=== PATIENT | female | born 1980 | race Caucasian/White ===

== ENCOUNTER → 2017-05-13 16:49 | Outpatient (CLI) | payer MEDICAID, SELFPAY ==
[2017-05-13 16:53] LABS: Mucous, Urine 0 SEEN /hpf (<or=2+); Red Blood Cells-Urine 0 SEEN /hpf (0-5)
[2017-05-13 17:54] LABS: Color, Urine Yellow (Yellow); Glucose, Dipstick Normal (Normal); Ketone-Dipstick Negative (Negative); Leukocyte Esterase-Dipstick 500 /ul (Negative); Nitrite-Dipstick Negative (Negative); Occult Blood-Urine Negative /ul (Negative); Protein-Dipstick Negative (Negative); Urine Bilirubin Dipstick Negative (Negative); Urine Clarity Clear (Clear); Urine Urobilinogen 1 mg/dl (Normal)
[2017-05-13 19:02] LABS: Squamous Epithelial Cells - UA 0-5 SEEN /hpf (5-10); Transitional Epithelial - Ur 0-5 SEEN /hpf (0-5); White Blood Cells 5-10 SEEN /hpf (0-5)
[2017-05-13 19:03] LABS: Bacteria 1+ /hpf (None Seen)
== END ==
PROVIDERS: Visit Provider Obstetrics & Gynecology
DX: N93.0 Postcoital and contact bleeding (principal); N30.30 Trigonitis without hematuria
CPT/HCPCS: 81001; 87086; 87088

== ENCOUNTER 2017-12-17 16:28 | Emergency (ER) | payer MEDICAID, SELFPAY ==
[2017-12-17 16:29] VITALS: BP 147/92; PULSE 82; RESP 16; TEMP 36.9; O2SAT 99; BMI 27.6
--- NOTE | 2017-12-17 17:38 | ED.RN ---
pt calls out. states.. i am not doing well. i am ot breathing. pulse ox applied. heart rate 90 o2 sat 100. attempted to reassure pt
--- NOTE | 2017-12-17 18:03 | ED.DCSUM_ITS ---
- ER Visit Summary Date of Service: 12/17/17 Chief Complaint: Jittery History of Present Illness: The patient is a 37 F patient presents with nausea anxiety and feeling jittery after taking prednisone for contact dermatitis. She is on Effexor and trazodone and she has a history of bipolar. She has no symptoms of psychosis. Physical Examination: She appears slightly anxious. Moist mucous membranes, no obvious facial deformity No C-spine tenderness supple neck. Regular rate and rhythm without any obvious murmurs Clear lungs bilaterally speaking in full sentences without any obvious respiratory distress Abdomen soft and nontender no guarding or rebound Moves all extremities without any difficulty or pain. Skin does not show any obvious rashes or lesions, no trauma. Alert oriented ?3 with no gross focal deficit Emergency Department Course and Treatment: Patient has a prednisone reaction, I told her to stop it as it could lead to psychosis, I will treat her symptomatically with Ativan and Vistaril. Discharge stable condition Impression: [Steroid side effect] This note was generated with [employer] dictation software. It may contain incorrect words, spelling, and punctuation that were not noted in review of the chart prior to signing ED Disposition - Plan for ED Patient: Disposition: Home or Assisted Living Chief Complaint: Allergic Reaction Instructions: Treating Anxiety Disorders with Medication Prescriptions: Ondansetron [Zofran Odt] 4 mg PO Q8H PRN PRN #10 tab PRN Reason: Nausea Hydroxyzine Pamoate [Vistaril] 50 mg PO 4X/DAY PRN PRN #20 cap PRN Reason: Anxiety Lorazepam [Ativan] 1 mg PO BID PRN 3 Days #6 tab PRN Reason: Anxiety Referrals: Jodie Haji NP-C [Primary Care Provider] -
[2017-12-17] MEDS: LORazepam 1 MG Tablet PO (18:13)
[2017-12-17] MEDS: hydrOXYzine PAM 25 MG Capsule 50 MG PO (18:13)
== END 2017-12-17 18:30 | disposition home or self-care (01) ==
LOC: ED 18:17
PROVIDERS: Emergency Provider Emergency Medicine; Family Provider Nurse Practitioner Family; PCP Nurse Practitioner Family
DX: R11.0 Nausea (principal); T38.0X5A Adverse effect of glucocorticoids and synthetic analogues, initial encounter; Y92.9 Unspecified place or not applicable; F31.9 Bipolar disorder, unspecified; F41.9 Anxiety disorder, unspecified; Z72.0 Tobacco use
CPT/HCPCS: 99283

== ENCOUNTER 2018-02-27 15:26 | Emergency (ER) | payer MEDICAID, SELFPAY ==
[2018-02-27 15:27] VITALS: BP 124/81; PULSE 85; RESP 16; TEMP 36.2; O2SAT 100; BMI 29.2
--- NOTE | 2018-02-27 15:29 | ED.RN ---
PT GIVEN AN ICE PACK TO TRY WHILE IN THE WAITING ROOM
--- NOTE | 2018-02-27 15:55 | ED.DCSUM_ITS ---
- ER Visit Summary Date of Service: 02/27/18 Chief Complaint: Right jaw and dental pain History of Present Illness: The patient is a 37 F history of depression endometriosis with prior he does report an cholecystectomy and hysterectomy. Complaint 2-day history of right jaw pain. Denies any trauma. No fever. No significant swelling. Physical Examination: No acute distress. H EENT exam right lower last molar has a cavity is tender to palpation. There is no gingival swelling or abscess. No trismus. No significant facial swelling. No cervical lymphadenopathy. TMs are normal bilaterally. Posterior pharynx moist and pink no erythema or exudate. Hypoxic. Neck nontender. Lungs clear to auscultation bilaterally. Heart regular rate and rhythm no murmur. Abdomen soft nontender. Normal bowel sounds no peritoneal signs. Extremities moves all 4. Neurovascular intact. Neurologic exam normal. Test Results: None Emergency Department Course and Treatment: Patient be treated for Emma. Naprosyn for pain. Pen-Vee K. Follow-up with a dentist. She will be given 2 [place] here but no narcotic prescription. Treatment Plan: Naprosyn for pain. Pen-Vee K for possible infection. See a dentist. Disposition: Discharge Impression: Acute dental pain secondary to right lower molar cavity This note was generated with [employer] dictation software. It may contain incorrect words, spelling, and punctuation that were not noted in review of the chart prior to signing ED Disposition - Plan for ED Patient: Disposition: Home or Assisted Living Chief Complaint: Dental Instructions: ED Cavity Dental Prescriptions: Naproxen [Naprosyn] 500 mg PO BID PRN PRN #20 tab PRN Reason: Pain Penicillin Vk [Pen-Vee K 250MG] 500 mg PO 4X/DAY #30 tab Additional Instructions: Follow-up with a dentist in the next several days. Naprosyn for pain and inflammation. Penicillin VK for any possible infection.
--- NOTE | 2018-02-27 16:00 | DCINST.ED_ITS ---
ED Disposition - Plan for ED Patient: Disposition: Home or Assisted Living Chief Complaint: Dental Instructions: ED Cavity Dental Prescriptions: Naproxen [Naprosyn] 500 mg PO BID PRN PRN #20 tab PRN Reason: Pain Penicillin Vk [Pen-Vee K 250MG] 500 mg PO 4X/DAY #30 tab Additional Instructions: Follow-up with a dentist in the next several days. Naprosyn for pain and inflammation. Penicillin VK for any possible infection.
[2018-02-27] MEDS: HYDROcodone Bitartrate/Apap 5/325 Tablet PO (16:11)
[2018-02-27 16:14] VITALS: PULSE 79; RESP 16
--- NOTE | 2018-02-27 16:14 | ED.RN ---
THIS NURSE REVIEWED D/C INSTRUCTIONS WITH PT. PT VERBALIZED UNDERSTANDING OF INSTRUCTIONS. PT DENIES FURTHER NEEDS OR QUESTIONS AT THIS TIME. PT AMBULATES FROM DEPARTMENT ON OWN WITHOUT ASSISTANCE FROM STAFF
== END 2018-02-27 16:15 | disposition home or self-care (01) ==
PROVIDERS: Emergency Provider Emergency Medicine; Family Provider Nurse Practitioner Family; PCP Nurse Practitioner Family
DX: K02.9 Dental caries, unspecified (principal); Z90.49 Acquired absence of other specified parts of digestive tract; F32.9 Major depressive disorder, single episode, unspecified; Z72.0 Tobacco use
CPT/HCPCS: 99283

== ENCOUNTER → 2019-03-02 13:33 | Outpatient (CLI) | payer MEDICAID, SELFPAY | PROVIDERS: Visit Provider Obstetrics & Gynecology | DX: N39.0 Urinary tract infection, site not specified (principal) | CPT/HCPCS: 87086 ==

== ENCOUNTER 2019-03-25 05:50 | Emergency (ER) | payer MEDICAID, SELFPAY ==
[2019-03-25 05:51] VITALS: BP 138/92; PULSE 82; RESP 23; TEMP 37; O2SAT 100; BMI 27.6
--- NOTE | 2019-03-25 06:20 | RAD_ITS ---
STUDY: X-RAY - LEFT SHOULDER REASON FOR EXAM: Female, 38 years old. c/o chest pain radiating to left shoulder since 4:00pm yesterday TECHNIQUE: 4 view(s) of the shoulder. COMPARISON: None. FINDINGS: Normal glenohumeral articulation. Normal acromioclavicular joint. Normal acromion. Normal humeral head and visualized proximal humerus. The soft tissue structures are unremarkable. Normal visualized pulmonary apex. RAD/Shoulder min 2 Views IMPRESSION: Normal x-ray examination of the shoulder. Electronically Signed: Edy Alegria, at 7:23 EST Tel , Service support ,
--- NOTE | 2019-03-25 06:21 | ED.DCSUM_ITS ---
History of Present Illness Chief Complaint: Upper Extremity Injury Narrative: Patient is a 38-year-old female who presents with left shoulder pain, arm pain, left upper chest pain. This is been present for the past 26 hours. She initially noted pain along left side of her neck and shoulder. She complains of pain in the upper left chest as well as pain radiating all the way down her left arm. This is sharp. It is worsened with palpation or movement or deep inspiration. No fevers cough congestion rhinorrhea sore throat vomiting diarrhea lower extremity swelling or pain, recent travel, recent surgery, history of DVT or pulmonary embolism. Past Medical History - Allergies and Home Meds Allergies/Adverse Reactions: Allergies Iodinated Contrast Media [CT] Allergy (Verified 03/25/19 05:59) Anaphylaxis latex Allergy (Verified 03/25/19 05:59) Swelling morphine Allergy (Verified 03/25/19 05:59) Anaphylaxis prednisone Allergy (Verified 03/25/19 05:59) Other diphenhydramine HCl [From Benadryl] Adverse Reaction (Verified 03/25/19 05:59) Other TACHYCARDIA Primary Care Physician: Gerri Martinez NP-C [Primary Care Provider] - Past Medical History: - - Depression Smoking Status: Current every day smoker Review of Systems All systems negative except as indicated General: Denies: Fever ENT: Denies: Rhinorrhea, Sore throat Cardiovascular: Reports: Chest pain Respiratory: Denies: Dyspnea, Cough Gastrointestinal: Reports: Nausea. Denies: Abdominal pain, Vomiting, Diarrhea Musculoskeletal: Reports: Neck pain, Extremity Pain Skin: Denies: Rash Neurological: Denies: Headache Hematologic: Denies: Easy bruising Allergy: Denies: Uticaria Physical Exam Vital Signs/Narrative: Vital Signs Temp Pulse Resp BP Pulse Ox 03/25/19 05:51 98.6 F 82 23 H 138/92 H 100 Inital Vital Signs reviewed: Yes General: Well nourished, Well developed Head: Normocephalic Eyes: EOMI ENT: Moist mucous membranes Neck: Supple Cardiovascular: Regular rate, Regular rhythm Respiratory: No distress, CTA bilaterally, Chest tenderness - Mild left upper chest wall tenderness, - - Equal breath sounds bilaterally. Negative for: Rales, Rhonchi, Wheezing Abdomen: Soft, Nontender, Nondistended Extremities: Nontender, - - Easily palpable left radial pulse, brisk capillary refill, normal sensation, patient does have some reproducible left shoulder tenderness and left paraspinal neck tenderness Skin: Normal color Neurological: Alert Diagnostic/Tx/Re-eval Impressions Shoulder X-Ray 03/25/19 06:20 IMPRESSION: Normal x-ray examination of the shoulder. Electronically Signed: Edy Alegria, at 7:23 EST Tel , Service support , Chest X-Ray 03/25/19 06:50 IMPRESSION: Scoliotic curvature to the spine. Left basilar atelectasis. No focal consolidation. Electronically Signed: Edy Alegria, at 7:21 EST Tel , Service support , 03/25/19 06:20 Shoulder min 2 Views [RAD] Stat 03/25/19 06:50 Chest PA and Lateral [RAD] Stat - Medical Decision Making Chest x-ray and shoulder x-ray unremarkable. EKG shows normal sinus rhythm at a rate of 78. Patient's pain does not appear to be due to acute serious or life- threatening pathology. Pulmonary embolism was considered, patient is PERC rule negative. She is neurovascularly intact. She has no evidence of limb ischemia she has easily palpable pulse brisk capillary refill normal motor function and sensation. I do believe this is elated to a musculoskeletal etiology, possibly cervical radiculopathy. She was given intramuscular Toradol here. She is resting comfortably on reevaluation. She was given a prescription for naproxen and advised to follow-up as an outpatient. She was discharged. ED Disposition - Plan for ED Patient: Disposition: Home or Assisted Living Diagnosis: Chest pain, Arm pain, left Instructions: CHEST PAIN, NonCardiac Referrals: Gerri Martinez NP-C [Primary Care Provider] -
[2019-03-25] MEDS: Ketorolac 60 MG/2 ML Vial IM (06:36)
[2019-03-25] MEDS: Ondansetron ODT 4 MG Tablet PO (06:37)
--- NOTE | 2019-03-25 06:39 | EKG12_ITS ---
Test Reason : CP Blood Pressure : / mmHG Vent. Rate : 078 BPM Atrial Rate : 078 BPM P-R Int : 124 ms QRS Dur : 086 ms QT Int : 374 ms P-R-T Axes : 060 063 057 degrees QTc Int : 426 ms Normal sinus rhythm Normal ECG Confirmed by MELLO ALLRED, VANESSA ([id number]), web editor ESTELA GERBER ([id number]) on 03/27/2019 9:29:14 AM Referred By: ATIYA Confirmed By:VANESSA SARKAR MD
[2019-03-25 06:47] VITALS: BP 112/75; PULSE 78; RESP 18; O2SAT 98
--- NOTE | 2019-03-25 06:50 | RAD_ITS ---
STUDY: X-RAY CHEST REASON FOR EXAM: Female, 38 years old. c/o chest pain radiating to left shoulder since 4:00pm yesterday TECHNIQUE: Frontal and lateral views of the chest. COMPARISON: None. FINDINGS: Left basilar atelectasis. No focal consolidation. There is no demonstrated pleural abnormality. Normal size heart. Normal mediastinum and nic. Normal visualized pulmonary arteries. Normal visualized aortic arch and descending thoracic aorta. Scoliotic curvature to the spine. Normal visualized ribs, clavicles, and shoulders. There is no demonstrated abnormality of the visualized soft tissue structures of the upper abdomen. RAD/Chest PA and Lateral IMPRESSION: Scoliotic curvature to the spine. Left basilar atelectasis. No focal consolidation. Electronically Signed: Edy Alegria, at 7:21 EST Tel , Service support ,
== END 2019-03-25 07:48 | disposition home or self-care (01) ==
PROVIDERS: Emergency Provider Emergency Medicine; Family Provider Nurse Practitioner Family; PCP Nurse Practitioner Family
DX: R07.89 Other chest pain (principal); M79.602 Pain in left arm; M25.512 Pain in left shoulder; R11.0 Nausea; J98.11 Atelectasis; F32.9 Major depressive disorder, single episode, unspecified; Z79.899 Other long term (current) drug therapy; F17.200 Nicotine dependence, unspecified, uncomplicated
CPT/HCPCS: 71046; 73030; 93005; 96372; 99283

== ENCOUNTER → 2019-05-15 | Outpatient (CLI) | payer MEDICAID, SELFPAY | END | disposition home or self-care (01) | LOC: LABSPEC 15:26 | PROVIDERS: PCP Nurse Practitioner Family; Visit Provider Obstetrics & Gynecology | DX: N39.0 Urinary tract infection, site not specified (principal) | CPT/HCPCS: 87086; 87088 ==

== ENCOUNTER 2019-11-11 23:36 | Emergency (ER) | payer MEDICAID, SELFPAY ==
[2019-11-11 23:37] VITALS: BP 125/60; PULSE 81; RESP 15; TEMP 36.4; O2SAT 100; BMI 32.0
--- NOTE | 2019-11-12 | ED.VISSUMM ---
- ER Visit Summary Date of Service: 11/12/19 Chief Complaint: Low back pain, nausea, and urinary frequency History of Present Illness: The patient is a 39 F who presents with low back pain, nausea, and urinary frequency over the past 3 days. Patient states the pain is worse over the left lower lumbar area and radiates around to her left lower quadrant. Patient states she has a history of kidney stones but this feels different. Patient describes her pain is cramping and dull. Patient states yesterday it was more aching and throbbing. Patient states the pain is over the left lower back and left flank area. Patient states pain is worse with standing and lifting at work. Physical Examination: Vital signs are stable. Patient is afebrile. Patient is in no acute distress. Oral mucosa is pink and moist. Neck is supple. Trachea is midline. There is no JVD or lymphadenopathy. Heart was regular rate and rhythm. Lungs are clear and equal bilaterally. Abdomen is soft. Bowel sounds are normal. There is some mild left lower quadrant tenderness. There is also some mild left CVA tenderness. There is no rebound or guarding noted. Extremities are intact. There is no calf tenderness or edema. Cranial nerves II through XII are intact. There are no focal motor or sensory deficits. Test Results: CBC and comprehensive metabolic profile were within normal limits. Urinalysis does not show any evidence of urinary tract infection. CT scan of the abdomen and pelvis was obtained. There is no acute intra-abdominal process. This was interpreted by the radiologist and reviewed by myself. Emergency Department Course and Treatment: Patient was given IV fluids, Toradol, and Zofran here. Patient was feeling better on reevaluation. Patient was advised of her findings. Patient was instructed to follow-up with her primary care physician in 5 to 7 days. Patient was given a note for work for tomorrow. Patient was instructed to return if worse in any way. Patient understood and was agreeable with the plan. All questions were answered. Disposition: Discharge home Impression: Abdominal pain This note was generated with [employer] dictation software. It may contain incorrect words, spelling, and punctuation that were not noted in review of the chart prior to signing ED Disposition - Plan for ED Patient: Disposition: Home or Assisted Living Diagnosis: Abdominal pain Instructions: ED Abdominal Pain Unkn Cause Fem Referrals: Lorson,Gerri, BODY DIE MAKER-C [Primary Care Provider] - 5-7 Days
[2019-11-12] MEDS: Ondansetron 4 MG/2 ML Vial IV (00:28)
[2019-11-12] MEDS: 0.9% Normal Saline 1,000 ML 1000 ML IV (00:28)
[2019-11-12] MEDS: Ketorolac 30 MG/ML Syringe IV (00:29)
[2019-11-12 00:41] LABS: Mucous, Urine 0 SEEN /hpf (<or=2+); Squamous Epithelial Cells - UA 0 SEEN /hpf (5-10); White Blood Cells 0 SEEN /hpf (0-5)
[2019-11-12 00:50] LABS: Absolute Lymphocyte Count 2.17 X10^3/uL (0.83-4.51); Absolute Neutrophil Count 4.7 X10^3/uL (2.0-7.7); Basophil# 0.05 X10^3/uL; Basophil% 0.7 % (0-1); Eosinophil# 0.11 X10^3/uL; Eosinophils% 1.5 % (0-5); Hematocrit 43.9 % (37-47); Hemoglobin 14.7 g/dL (12.0-15.0); Lymphocyte # 2.17 X10^3/ul (4.0); Lymphocyte % 28.9 % (19-41); Mean Corp Hgb Conc 33.5 g/dL (32-36); Mean Corpuscular Hgb 30.7 pg (27.0-32.0); Mean Corpuscular Volume 91.6 fL (81-99); Mean Platelet Vol. 9.1 fl (6.2-12.0); Monocyte# 0.47 X10^3/uL; Monocyte% 6.3 % (0-10); NRBC Flagged by Analyzer 0 % (0-5); Neutrophil % 62.3 % (47-70); Platelet Count 249 K/mm3 (150-450); RBC Distribution Width CV 12.3 % (11.6-14.6); RBC Distribution Width SD 41.2 fl (35.1-43.9); Red Blood Count 4.79 M/mm3 (4.2-5.4); White Blood Count 7.5 K/mm3 (4.4-11.0)
[2019-11-12 00:51] LABS: Color, Urine Yellow (Yellow); Glucose, Dipstick Normal (Normal); Ketone-Dipstick Negative (Negative); Leukocyte Esterase-Dipstick Negative /ul (Negative); Nitrite-Dipstick Negative (Negative); Occult Blood-Urine 10 /ul (Negative); Protein-Dipstick Negative (Negative); Urine Bilirubin Dipstick Negative (Negative); Urine Clarity Clear (Clear); Urine Urobilinogen Normal (Normal)
[2019-11-12 00:56] LABS: Amorphous Sediment 1+; Bacteria RARE /hpf (None Seen); Red Blood Cells-Urine 0-5 SEEN /hpf (0-5)
[2019-11-12 01:06] LABS: ALB/GLOB Ratio 1.1 RATIO (0.9-2.4); AST(SGOT) 10 U/L (15-37); Alanine Aminotransfer ALT/SGPT 13 U/L (13-56); Albumin, Serum 3.7 g/dL (3.2-5.0); Alkaline Phosphatase 69 U/L (45-117); Anion Gap 6 (5-15); BUN 20 mg/dL (7-18); BUN/Creat Ratio 23.4 RATIO (10-20); Calcium,Total 9.2 mg/dL (8.5-10.1); Chloride 107 mmol/L (98-107); Creatinine, Serum 0.85 mg/dL (0.55-1.02); EST Glomerular Filtration Rate 79 mL/min (>60); Est Glom Filt Rate - Afr Amer 96 mL/min (>60); Estimated Creatinine Clearance 71.67 ml/min; Globulin 3.5 g/dL (2.2-4.2); Glucose 80 mg/dL (74-106); Lipase 185 U/L (73-393); Potassium 3.6 mmol/L (3.5-5.1); Protein, Total 7.2 g/dL (6.4-8.2); Sodium Level 140 mmol/L (136-145)
[2019-11-12 01:32] VITALS: BP 90/56; PULSE 71; RESP 15; O2SAT 99
--- NOTE | 2019-11-12 23:59 | CT_ITS ---
STUDY: CT ABDOMEN AND PELVIS WITHOUT CONTRAST REASON FOR EXAM: Female, 39 years old. Low back pain with nausea and urinary frequency. TECHNIQUE: Transaxial images were obtained from the dome of the diaphragm to the symphysis pubis without oral contrast, and without intravenous contrast. Sagittal and coronal images were reconstructed. Individualized dose optimization techniques were used for this CT. COMPARISON: None. FINDINGS: Partially visualized lower chest: Lung bases unremarkable. Liver: No concerning lesions. Gallbladder and biliary tree: Gallbladder not visible, probably resected. No biliary ductal dilation. Pancreas: No pancreatic lesions or inflammation. Spleen: Normal size, no splenic lesions. Adrenal glands: No concerning masses. Kidneys and ureters: No hydronephrosis or renal stones. No concerning masses. No ureteral dilation. Bowel: Noninflamed appendix. No obstruction or inflammation of the bowel. Urinary bladder: No stones or wall thickening. Reproductive: Status post hysterectomy. Neither ovary identified. Normal vaginal cuff. Vascular: No abdominal aortic aneurysm. Retroperitoneal and peritoneal spaces: No ascites or free air. No retroperitoneal lesions. Osseous: No acute osseous abnormality. Abdominal and pelvic wall: No concerning findings. CT/Abdomen/Pelvis without Cont IMPRESSION: No acute or concerning findings. Electronically Signed: Valdo Lee, at 0:58 EDT Tel , Service support ,
== END 2019-11-12 01:33 | disposition home or self-care (01) ==
PROVIDERS: Emergency Provider Emergency Medicine; PCP Nurse Practitioner Family
DX: R10.32 Left lower quadrant pain (principal); E66.9 Obesity, unspecified; Z87.442 Personal history of urinary calculi; Z72.0 Tobacco use
CPT/HCPCS: 74176; 80053; 81001; 83690; 85025; 96361; 96374; 96375; 99283; J7030; A4216; J2405

== ENCOUNTER → 2020-07-23 | Outpatient (CLI) | payer MEDICAID, SELFPAY ==
[2020-07-25 12:42] LABS: Gonococcus By Nucleic Acid AMP Negative (Negative)
[2020-07-25 12:45] LABS: Chlamydia By Nucleic Acid AMP Positive (Negative)
== END | disposition home or self-care (01) ==
PROVIDERS: PCP Nurse Practitioner Family; Visit Provider Obstetrics & Gynecology
DX: R30.0 Dysuria (principal); Z11.3 Encounter for screening for infections with a predominantly sexual mode of transmission
CPT/HCPCS: 87086; 87088; 87491; 87591

== ENCOUNTER → 2020-08-12 | Outpatient (CLI) | payer MEDICAID, SELFPAY ==
[2020-08-14 20:08] LABS: Chlamydia By Nucleic Acid AMP Negative (Negative)
[2020-08-14 21:21] LABS: Gonococcus By Nucleic Acid AMP Negative (Negative)
== END | disposition home or self-care (01) ==
LOC: LABSPEC 16:33
PROVIDERS: PCP Nurse Practitioner Family; Visit Provider Obstetrics & Gynecology
DX: Z11.3 Encounter for screening for infections with a predominantly sexual mode of transmission (principal)
CPT/HCPCS: 87491; 87591

== ENCOUNTER 2020-12-29 23:34 | Emergency (ER) | payer MEDICAID, SELFPAY ==
[2020-12-29 23:35] VITALS: BP 139/102; PULSE 95; RESP 18; TEMP 36.7; O2SAT 100; BMI 36.3
--- NOTE | 2020-12-30 00:38 | EX.ED.DYSGE1 ---
HPI History of Present Illness Chief Complaint: Shortness of Breath Detail of Chief Complaint: Shortness of breath, loss of taste, diarrhea Informant: patient Onset/Context/Timing Onset: Today (Loss follow-up patient), Days (Diarrhea past 2 days) and Weeks (Initial viral infection started 3 weeks ago) Context: Sudden Onset Timing: Continuous Current Severity: Moderate Maximum Severity: Moderate Worsened by: Nothing Relieved by: Nothing Associated Symptoms Associated Symptoms: Per HPI Narrative Narrative: Patient is a 40-year-old woman who is a smoker. She has a cough which is nonproductive. She presents because of diarrhea that started 2 days ago. She states 6-7 watery loose stools without blood or mucus. She reports thirst, dry mouth and orthostatic symptoms. She reports loss of taste today. She denies headache, visual, ocular auditory symptoms. She denies rash. Denies joint pain or swelling. Patient states she was ill 3 weeks ago with respiratory symptoms. Her children and the father of her children were positive for Covid. Her Covid test was negative. She does report nausea without vomiting. She denies dysuria, frequency, urgency or hematuria. She denies rash. She denies myalgias. Prior similar symptoms: No Recent Illness/Hospitalization: Yes PFSH PFSH Medical History Asthma Kidney stones Smoker Home Medications topiramate 200 mg PO DAILY 12/13/14 [History Last Taken Unknown] venlafaxine 150 mg PO DAILY 12/13/14 [History Last Taken 09/16/16 09:00] trazodone 200 mg PO QHS PRN PRN 01/24/17 [History Last Taken Unknown] bupropion HCl 150 mg PO DAILY 03/25/19 [History Last Taken Unknown] naproxen 500 mg PO BID #20 tab 03/25/19 [Rx Last Taken Unknown] potassium chloride 20 meq PO BID #180 ml 12/30/20 [Rx Last Taken Unknown] Allergy/AdvReac Type Severity Reaction Status Date / Time Iodinated Contrast Media [CT] Allergy Anaphylaxis Verified 12/29/20 23:38 latex Allergy Swelling Verified 12/29/20 23:38 morphine Allergy Anaphylaxis Verified 12/29/20 23:38 prednisone Allergy Other Verified 12/29/20 23:38 diphenhydramine HCl AdvReac Other Verified 12/29/20 23:38 [From Frantz] Surgical History (Updated 12/30/20 @ 01:22 by Lucie Jacobs) History of cholecystectomy Social History (Updated 12/30/20 @ 00:[address] Patel Barnhart MD) household members: significant other and children Smoking Status: Current every day smoker tobacco type: cigarettes alcohol intake: current Alcohol type: other substance use type: marijuana ROS ROS ED Constitutional Constitutional ED: Reports weight loss and other Details: Patient reports 15 pound weight loss over the past 2 weeks ; Denies chills, fever(s), subjective or sweats Eyes Eyes: Denies blurry vision, change in vision or diplopia ENT ENT ED: Denies ear pain, rhinorrhea or sore throat Cardiovascular Cardiovascular: Denies chest pain, orthopnea, palpitations, paroxysmal nocturnal dyspnea or racing heartbeat Respiratory/Chest Respiratory/Chest: Reports cough, dyspnea and dyspnea on exertion; Denies orthopnea, paroxysmal nocturnal dyspnea or sputum Gastrointestinal Gastrointestinal: Reports abdominal pain, diarrhea and nausea; Denies constipation or vomiting Genitourinary Genitourinary ED: Denies dysuria, hematuria or urinary frequency Musculoskeletal Musculoskeletal: Denies arthralgias, back pain, myalgias or neck pain Integumentary Denies rash Neurologic Neurologic: Reports weakness Endocrine Endocrinology: Denies polydipsia, polyphagia or polyuria Allergic/Immunologic Allergic/Immunologic ED: Denies urticaria EXAM Physical Exam Const Vital Signs: 12/29/20 23:35 Temperature 98.1 F Temperature Source Temporal Pulse Rate 95 Respiratory Rate 18 Blood Pressure 139/102 H Blood Pressure Mean 114 Pulse Ox 100 Oxygen Delivery Method Room Air Positive well nourished, well developed and obese General Appearance ED: well developed Nutritional Appearance: obese HEENT HEENT Narrative: Head is atraumatic normocephalic. Ears normal. TMs normal. Posterior pharynx no erythema or exudate. Mucosa is dry. Eyes PERRL and EOMs intact bilaterally General Eye ED: Negative for pale conjunctiva or scleral icterus Neck no lymphadenopathy, supple and no JVD Chest Wall inspection of chest normal Resp normal respiratory effort and clear to auscultation bilaterally Cardio regular rate, regular rhythm, S1 normal heart sound, S2 normal heart sound and no murmurs GI normal to inspection, nondistended, normoactive bowel sounds and non-tender Palpation: soft Back/Spine no CVA tenderness Cervical Spine: Negative for cervical spine tenderness Thoracic Spine / Upper Back: Negative for thoracic spinal tenderness or paraspinal muscle tenderness Extremity normal to inspection General Extremety ED: Negative for edema or tenderness General Extremity: Negative for edema Neuro oriented x3, CN's II-XII intact bilaterally and no sensory deficits noted Sensorium / Orientation: alert Motor Exam: strength 5/5 throughout Psych mental status grossly normal Skin no rashes or lesions noted and no wounds MDM MDM MDM Narrative Medical decision making narrative: Suspect patient has Covid. Because she is had significant diarrhea basic metabolic panel was obtained to assess renal function and specifically potassium for hypocalcemia. She does report shortness of breath CBC was obtained to rule out anemia. Patient was medicated with Zofran for her nausea and Imodium for her diarrhea. She received a fluid bolus. Covid test was ordered. Patient is hypokalemic due to diarrhea secondary to COVID-19 infection. She will receive p.o. potassium and discharged with short course of potassium. Lab Data Attestation: I reviewed the patient's lab results. Lab results narrative: Patient is neutropenic due to Covid. Covid test was positive. Labs: Laboratory Results - last 24 hr 12/30/20 12/30/20 01:11 01:11 WBC 4.1 L RBC 5.52 H Hgb 17.0 H Hct 49.4 H MCV 89.5 MCH 30.8 MCHC 34.4 RDW Std Deviation 41.4 RDW Coeff of Konstantin 12.6 Plt Count 203 MPV 9.6 Immature Gran % (Auto) 0.500 Neut % (Auto) 52.2 Lymph % (Auto) 37.2 Beadle % (Auto) 9.2 Eos % (Auto) 0.2 Baso % (Auto) 0.7 Absolute Neuts (auto) 2.1 Absolute Lymphs (auto) 1.53 Nucleated RBC % 0 Sodium 141 Potassium 3.0 L Chloride 105 Carbon Dioxide 27.0 Anion Gap 9 BUN 10 Creatinine 0.80 Estim Creat Clear Calc 75.41 Est GFR (MDRD) Af Amer 103 Est GFR (MDRD) Non-Af 85 BUN/Creatinine Ratio 12.5 Glucose 85 Calcium 9.5 Rhythm Strip Rhythm Strip: Sinus Rhythm Rate: 92 Ectopy: None Discharge Plan Triage Chief Complaint: Shortness of Breath ED Provider: Patel Barnhart Dx/Rx/DC Orders Clinical Impression: Diarrhea due to COVID-19, Acute hypokalemia, Mild dehydration, Neutropenia due to infection Instructions: Coronavirus Disease 2019 (COVID-19): Caring for Yourself or Others Prescriptions: New potassium chloride 20 mEq/15 mL liquid 20 meq PO BID Qty: 180 RF: 0 No Action venlafaxine 150 MG capsule 150 mg PO DAILY RF: 0 topiramate 50 MG tablet 200 mg PO DAILY RF: 0 trazodone 50 MG tablet 200 mg PO QHS PRN PRN (Reason: Insomnia) RF: 0 bupropion HCl 150 MG tablet extended release 24 hr 150 mg PO DAILY RF: 0 naproxen 500 MG tablet 500 mg PO BID Qty: 20 RF: 0 Primary Care Provider: Gerri Martinez NP Referrals: Gerri Martinez NP, [employer]MENT OPERATOR-C [Primary Care Provider] - Activity Restrictions/Additional Instructions: 1. Take potassium as prescribed 2. Take Imodium for loose stools 3. You will need to contact your practitioner for potassium test in 5 days, January 03 Disposition Disposition: Home, Self Care
[2020-12-30] MEDS: Loperamide 2 MG Capsule 4 MG PO (00:53)
[2020-12-30] MEDS: Ondansetron 4 MG/2 ML Vial IV (00:53)
[2020-12-30 01:22] LABS: Absolute Lymphocyte Count 1.53 X10^3/uL (0.83-4.51); Absolute Neutrophil Count 2.1 X10^3/uL (2.0-7.7); Basophil# 0.03 X10^3/uL; Basophil% 0.7 % (0-1); Eosinophil# 0.01 X10^3/uL; Eosinophils% 0.2 % (0-5); Hematocrit 49.4 % (37-47); Lymphocyte # 1.53 X10^3/ul (0.83-4.51); Lymphocyte % 37.2 % (19-41); Mean Corp Hgb Conc 34.4 g/dL (32-36); Mean Corpuscular Hgb 30.8 pg (27.0-32.0); Mean Corpuscular Volume 89.5 fL (81-99); Mean Platelet Vol. 9.6 fl (6.2-12.0); Monocyte# 0.38 X10^3/uL; Monocyte% 9.2 % (0-10); NRBC Flagged by Analyzer 0 % (0-5); Neutrophil # 2.14 X10^3/uL (2.7-7.7); Neutrophil % 52.2 % (47-70); Platelet Count 203 K/mm3 (150-450); RBC Distribution Width CV 12.6 % (11.6-14.6); RBC Distribution Width SD 41.4 fl (35.1-43.9); Red Blood Count 5.52 M/mm3 (4.2-5.4); White Blood Count 4.1 K/mm3 (4.4-11.0)
[2020-12-30 01:51] LABS: Anion Gap 9 (5-15); BUN 10 mg/dL (7-18); BUN/Creat Ratio 12.5 RATIO (10-20); Calcium,Total 9.5 mg/dL (8.5-10.1); Chloride 105 mmol/L (98-107); EST Glomerular Filtration Rate 85 mL/min (>60); Est Glom Filt Rate - Afr Amer 103 mL/min (>60); Estimated Creatinine Clearance 75.41 ml/min; Glucose 85 mg/dL (74-106); Sodium Level 141 mmol/L (136-145)
[2020-12-30] MEDS: Potassium Chloride Oral Soln 20 MEQ/15 ML UDC 40 MEQ PO ×3 (02:35→02:40)
[2020-12-30 02:39] VITALS: BP 143/89; PULSE 89; RESP 16; O2SAT 98
== END 2020-12-30 02:42 | disposition home or self-care (01) ==
PROVIDERS: Emergency Provider Emergency Medicine; PCP Nurse Practitioner Family
DX: U07.1 COVID-19 (principal); R19.7 Diarrhea, unspecified; E87.6 Hypokalemia; E86.0 Dehydration; D70.3 Neutropenia due to infection; F17.210 Nicotine dependence, cigarettes, uncomplicated; E66.9 Obesity, unspecified; Z87.442 Personal history of urinary calculi
CPT/HCPCS: 80048; 85025; 87426; 96374; 99281; J2405

== ENCOUNTER 2021-05-07 13:01 | Outpatient (CLI) | payer MEDICAID, SELFPAY | END 2021-05-07 23:59 | disposition home or self-care (01) | LOC: LABSPEC 13:04 | PROVIDERS: PCP Nurse Practitioner Family; Visit Provider Obstetrics & Gynecology | DX: N77.1 Vaginitis, vulvitis and vulvovaginitis in diseases classified elsewhere (principal) ==

== ENCOUNTER 2021-11-09 22:24 | Emergency (ER) | payer MEDICAID, SELFPAY ==
[2021-11-09 22:25] VITALS: BP 139/95; PULSE 86; RESP 18; TEMP 37.3; O2SAT 99; BMI 32.9
[2021-11-09 22:27] VITALS: BP 139/95; PULSE 86; RESP 18; TEMP 37.3; O2SAT 99
[2021-11-09 22:42] LABS: Mucous, Urine 0 SEEN /hpf (<or=2+)
--- NOTE | 2021-11-09 22:47 | ED.VIS.FEGU ---
HPI HPI - Female History of Present Illness Chief Complaint: Complaint Informant: patient Narrative Narrative: Patient presents with dysuria and now hematuria. Patient states that she started with some slight suprapubic discomfort yesterday. She then developed dysuria. The dysuria got worse today. She then also got hematuria with this. She has some pain up toward the flank mostly on the left but a little bit on the right. Most of her discomfort is suprapubic across her lower abdomen. Mild nausea but no vomiting. Subjective fevers. Primary complaint is the burning with urination that feels like razor blades. Patient has had kidney stones in the past but also has frequent UTIs that present like this. She has had a complete hysterectomy before. She had hysterectomy and unilateral oophorectomy. They then took the second ovary and a later operation. She is also had cholecystectomy PFSH PFSH Medical History Asthma Kidney stones Smoker Home Medications topiramate 50 mg tablet 200 mg PO DAILY 12/13/14 [History Last Taken Unknown] venlafaxine 150 mg capsule,extended release 24 hr 150 mg PO DAILY 12/13/14 [History Last Taken 09/16/16 09:00] trazodone 50 mg tablet 200 mg PO QHS PRN PRN Insomnia 01/24/17 [History Last Taken Unknown] bupropion HCl 150 mg 24 hr tablet, extended release 150 mg PO DAILY 03/25/19 [History Last Taken Unknown] naproxen 500 mg tablet 500 mg PO BID #20 tabs 03/25/19 [Rx Last Taken Unknown] potassium chloride 20 mEq/15 mL oral liquid 20 meq (15 mL) PO BID #180 mL 12/30/20 [Rx Last Taken Unknown] fluconazole 150 mg tablet (Diflucan) 150 mg PO DAILY #2 tabs 11/09/21 [Rx Last Taken Unknown] nitrofurantoin monohydrate/macrocrystals 100 mg capsule (Macrobid) 100 mg PO BID #20 caps 11/09/21 [Rx Last Taken Unknown] phenazopyridine 100 mg tablet (Pyridium) 100 mg PO TID 6 doses #6 tabs 11/09/21 [Rx Last Taken Unknown] Allergy/AdvReac Type Severity Reaction Status Date / Time Iodinated Contrast Media [CT] Allergy Anaphylaxis Verified 11/09/21 22:28 latex Allergy Swelling Verified 11/09/21 22:28 morphine Allergy Anaphylaxis Verified 11/09/21 22:28 prednisone Allergy Other Verified 11/09/21 22:28 diphenhydramine HCl AdvReac Other Verified 11/09/21 22:28 [From Benadryl] Surgical History History of cholecystectomy Social History household members: significant other and children Smoking Status: Current every day smoker tobacco type: cigarettes alcohol intake: current Alcohol type: other substance use type: marijuana ROS ROS ED Constitutional Constitutional ED: Reports subjective Eyes Eyes: Denies blurry vision ENT ENT ED: Denies rhinorrhea or sore throat Cardiovascular Cardiovascular: Denies chest pain Respiratory/Chest Respiratory/Chest: Denies cough or dyspnea Gastrointestinal Gastrointestinal: Reports abdominal pain and nausea; Denies constipation, diarrhea, melena or vomiting Genitourinary Genitourinary ED: Reports dysuria, hematuria and urinary frequency Musculoskeletal Musculoskeletal: Denies neck pain Integumentary Denies rash Neurologic Neurologic: Denies paresthesias or weakness Endocrine Endocrinology: Denies polydipsia or polyuria Hematologic/Lymphatic Hematologic/Lymphatic: Denies easy bleeding or easy bruising Allergic/Immunologic Allergic/Immunologic ED: Denies urticaria EXAM Physical Exam Const Vital Signs: 11/09/21 22:25 11/09/21 22:27 Temperature 99.1 F 99.1 F Temperature Source Oral Oral Pulse Rate 86 86 Respiratory Rate 18 18 Blood Pressure 139/95 H 139/95 H Blood Pressure Mean 109 109 Pulse Ox 99 99 Oxygen Delivery Method Room Air Room Air Positive well nourished and well developed General Appearance ED: well developed and NAD HEENT Reports moist mucous membranes Eyes General Eye ED: Negative for scleral icterus Resp normal respiratory effort and clear to auscultation bilaterally Cardio regular rate and regular rhythm GI normal to inspection, nondistended, normoactive bowel sounds GI Narrative: Patient has very minimal suprapubic tenderness. No rebound no guarding. No tenderness higher up. She has some mild CVA tenderness on both sides but is also tender with just paraspinal soft palpation. Back/Spine General Back: CVA tenderness Extremity normal to inspection Neuro Sensorium / Orientation: alert Psych mental status grossly normal Skin no rashes or lesions noted Skin Narrative: No vesicles. MDM MDM MDM Narrative Medical decision making narrative: Patient's urine shows 25-50 white cells 3+ bacteria 500 leukocyte Estrace and large number of red cells. This is consistent with UTI. Her onset of pain was suprapubic slow onset that then progressed. This is not typical of her sudden onset of pain with a kidney stone. We discussed options but agreed that at this time we will not do a CAT scan of her abdomen. We will treat this as UTI. If she is having more pain, fevers, vomiting or other concerns she should return. Although she is not allergic, she does not tolerate Bactrim well. She states normally she gets Macrobid and that works very well for her. Therefore in this case we will go with Macrobid. I have also written for Diflucan as she will have yeast issues often. Also Pyridium is written for. Lab Data Attestation: I reviewed the patient's lab results. Labs: Laboratory Results - last 24 hr 11/09/21 22:35 Urine Color Red Urine Clarity Cloudy Urine pH 7.0 Ur Specific [place] 1.005 Urine Protein 100 H Urine Glucose (UA) Normal Urine Ketones Negative Urine Occult Blood 250 H Urine Nitrite Negative Urine Bilirubin Negative Urine Urobilinogen Normal Ur Leukocyte Esterase 500 H Urine RBC > 100 SEEN Urine WBC 25-50 SEEN Ur Squamous Epith Cells 0-5 SEEN Urine Bacteria 3+ Urine Mucus 0 SEEN Urine Test Negative Discharge Plan Triage Chief Complaint: Complaint ED Provider: Yonathan Giles Dx/Rx/DC Orders Clinical Impression: UTI (urinary tract infection) Instructions: ED Cystitis Female Adult Prescriptions: New fluconazole [Diflucan] 150 mg tablet 150 mg PO DAILY Qty: 2 0RF Rx Instructions: Take on day 7 and day 10 of antibiotic treatment nitrofurantoin monohyd/m-cryst [Macrobid] 100 mg capsule 100 mg PO BID Qty: 20 0RF Rx Instructions: must administer with a meal/food phenazopyridine [Pyridium] 100 mg tablet 100 mg PO TID Qty: 6 0RF No Action venlafaxine 150 MG capsule 150 mg PO DAILY Label Comments: MOOD topiramate 50 MG tablet 200 mg PO DAILY Label Comments: BIPOLAR trazodone 50 MG tablet 200 mg PO QHS PRN PRN (Reason: Insomnia) Label Comments: CAN TAKE 50-150MG FOR INSOMNIA bupropion HCl 150 MG tablet extended release 24 hr 150 mg PO DAILY naproxen 500 MG tablet 500 mg PO BID Qty: 20 0RF potassium chloride 20 mEq/15 mL liquid 20 meq PO BID Qty: 180 0RF Primary Care Provider: Gerri Martinez NP Referrals: Gerri Martinez NP, ESTHETICIAN/SPA COORDINATOR-C [Primary Care Provider] - 3-5 Days if not improving Disposition Disposition: Home, Self Care
[2021-11-09 22:51] LABS: Color, Urine Red (Yellow); Glucose, Dipstick Normal (Normal); Ketone-Dipstick Negative (Negative); Leukocyte Esterase-Dipstick 500 /ul (Negative); Nitrite-Dipstick Negative (Negative); Occult Blood-Urine 250 /ul (Negative); Protein-Dipstick 100 mg/dl (Negative); Specific Gravity, Urine 1.005 (1.002-1.030); Urine Bilirubin Dipstick Negative (Negative); Urine Clarity Cloudy (Clear); Urine Urobilinogen Normal (Normal)
[2021-11-09] MEDS: oxyCODONE 5 MG Tablet PO (22:52)
[2021-11-09] MEDS: Phenazopyridine 95 MG Tablet 190 MG PO (22:52)
[2021-11-09] MEDS: Ondansetron ODT 4 MG Tablet PO (22:52)
[2021-11-09 23:10] LABS: Bacteria 3+ /hpf (None Seen); Red Blood Cells-Urine > 100 SEEN /hpf (0-5); Squamous Epithelial Cells - UA 0-5 SEEN /hpf (5-10); White Blood Cells 25-50 SEEN /hpf (0-5)
[2021-11-09 23:29] LABS: Internal QC Validated? YES +Cl - CLEAR BKGD
[2021-11-09 23:30] LABS: Pregnancy, Urine Negative Negative
[2021-11-09] MEDS: Nitrofurantoin Macrocrystals 100 MG Capsule PO (23:51)
[2021-11-09 23:53] VITALS: BP 134/58; PULSE 79; RESP 18
== END 2021-11-09 23:54 | disposition home or self-care (01) ==
PROVIDERS: Emergency Provider Emergency Medicine; PCP Nurse Practitioner Family; Visit Provider Emergency Medicine
DX: N39.0 Urinary tract infection, site not specified (principal); F17.210 Nicotine dependence, cigarettes, uncomplicated; J45.909 Unspecified asthma, uncomplicated; Z90.721 Acquired absence of ovaries, unilateral; Z87.442 Personal history of urinary calculi
CPT/HCPCS: 81001; 81025; 99283

== ENCOUNTER 2022-01-20 16:23 | Emergency (ER) | payer MEDICAID, SELFPAY ==
[2022-01-20 16:24] VITALS: BP 132/99; PULSE 76; RESP 18; TEMP 37; O2SAT 97; BMI 37.4
== END 2022-01-20 17:10 | disposition left against medical advice (07) ==
LOC: ED 17:11
PROVIDERS: PCP Nurse Practitioner Family
DX: Z53.21 Procedure and treatment not carried out due to patient leaving prior to being seen by health care provider (principal)

== ENCOUNTER 2022-05-23 23:02 | Emergency (ER) | payer MEDICAID, SELFPAY ==
--- NOTE | 2022-05-23 00:10 | RAD_ITS ---
INDICATION: cough EXAMINATION/TECHNIQUE: X-RAY - XR Chest 2 Views COMPARISON: 03/25/2019. FINDINGS: LINES/DEVICES: None. LUNGS: No consolidation. No pneumothorax. MEDIASTINUM: Unremarkable. CARDIAC SILHOUETTE: Not enlarged. BONES AND SOFT TISSUES: No acute abnormalities. RAD/Chest PA and Lateral IMPRESSION: No evidence of active intrathoracic disease. Electronically Signed: Enedina Wilson MD at 0:34 EST ,
[2022-05-23 23:03] VITALS: O2SAT 100
[2022-05-23 23:04] VITALS: BP 132/97; PULSE 79; RESP 18; TEMP 36.2; O2SAT 100; BMI 37.9
--- NOTE | 2022-05-23 23:35 | EDS_ITS ---
HPI History of Present Illness Chief Complaint: Shortness of Breath Informant: patient Narrative Narrative: Pain patient has about 2 to 3 days of symptoms. She started with some nasal congestion, headache she has developed muscle aches earaches slight headache na usea soft bowel movements. The nasal congestion worsened today but no facial pain. Highest temperature has been 99.9. 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 She tested herself it sounds like on Tuesday when her symptoms first started. It was negative on a home test at that time. Patient states that sometimes she feels her breathing is tight. She denied history of asthma although it is on her chart. But she does admit that when she gets sick she will oftentimes use an inhaler. She is not sure if she has heard wheezing. She is still smoking and was counseled to quit. PFSH PFSH Medical History Asthma Kidney stones Smoker Home Medications topiramate 50 mg tablet 200 mg PO DAILY 12/13/14 [History Last Taken Unknown] venlafaxine 150 mg capsule,extended release 24 hr 150 mg PO DAILY 12/13/14 [History Last Taken 09/16/16 09:00] trazodone 50 mg tablet 200 mg PO QHS PRN PRN Insomnia 01/24/17 [History Last Taken Unknown] bupropion HCl 150 mg 24 hr tablet, extended release 150 mg PO DAILY 03/25/19 [History Last Taken Unknown] naproxen 500 mg tablet 500 mg PO BID #20 tabs 03/25/19 [Rx Last Taken Unknown] potassium chloride 20 mEq/15 mL oral liquid 20 meq (15 mL) PO BID #180 mL [Rx Last Taken Unknown] fluconazole 150 mg tablet (Diflucan) 150 mg PO DAILY #2 tabs 11/09/21 [Rx Last Taken Unknown] nitrofurantoin monohydrate/macrocrystals 100 mg capsule (Macrobid) 100 mg PO BID #20 caps 11/09/21 [Rx Last Taken Unknown] phenazopyridine 100 mg tablet (Pyridium) 100 mg PO TID 6 doses #6 tabs 11/09/21 [Rx Last Taken Unknown] albuterol sulfate 90 mcg/actuation aerosol inhaler (Ventolin HFA) 2 puff inhalation Q4H PRN PRN Wheezing ##1 05/24/22 [Rx Last Taken Unknown] ondansetron 4 mg disintegrating tablet 4 mg PO Q8H PRN PRN Nausea #10 tabs 05/24/22 [Rx Last Taken Unknown] Allergy/AdvReac Type Severity Reaction Status Date / Time Iodinated Contrast Media [CT] Allergy Anaphylaxis Verified 05/23/22 23:04 latex Allergy Swelling Verified 05/23/22 23:04 morphine Allergy Anaphylaxis Verified 05/23/22 23:04 prednisone Allergy Other Verified 05/23/22 23:04 diphenhydramine HCl AdvReac Other Verified 05/23/22 23:04 [From Benadryl] Surgical History History of cholecystectomy Social History household members: significant other and children Smoking Status: Current every day smoker tobacco type: cigarettes alcohol intake: current Alcohol type: other substance use type: marijuana ROS ROS ED Constitutional Constitutional ED: Reports subjective and other Details: Highest temperature me asured was 99.9. Eyes Eyes: Denies change in vision ENT ENT ED: Reports ear pain, rhinorrhea and other Details: Nasal congestion ; Denies sore throat Cardiovascular Cardiovascular: Denies chest pain Respiratory/Chest Respiratory/Chest: Reports cough and dyspnea; Denies sputum Gastrointestinal Gastrointestinal: Reports diarrhea and nausea; Denies abdominal pain or vomiting Genitourinary Genitourinary ED: Denies dysuria or hematuria Musculoskeletal Musculoskeletal: Reports myalgias Integumentary Denies rash Neurologic Neurologic: Reports headache(s); Denies paresthesias or weakness Psychiatric Psychiatric: Reports anxiety Endocrine Endocrinology: Denies polydipsia or polyuria Hematologic/Lymphatic Hematologic/Lymphatic: Denies easy bleeding or easy bruising Allergic/Immunologic Allergic/Immunologic ED: Denies urticaria EXAM Physical Exam Narrative Exam Narrative: Patient awake alert no acute distress sitting in bed. HEENT shows moist mucous membranes with normal pharynx. Mild nasal congestion and clear rhinorrhea but no facial tenderness. Tympanic membranes are clear bilaterally. No temporal artery tenderness. Neck shows no JVD or lymphadenopathy. No stridor. Lungs are clear bilaterally. When the patient coughed, she did have wheezing but not with normal breathing. Heart is regular with a rate of about 70. I hear no murmur gallop or rub. Distal pulses are normal. Abdomen is soft with normal bowel sounds and completely nontender shows no CVA or suprapubic tenderness Extremities are not thin but there is no edema or asymmetry or tenderness. Skin shows no pallor or rashes. Const Vital Signs: 05/23/22 23:04 05/23/22 23:03 05/23/22 23:45 Temperature 97.2 F L Temperature Source Temporal Pulse Rate 79 82 Respiratory Rate 18 18 Respiratory Effort Normal Non-Labored Respiratory Depth Normal Respiratory Pattern Normal Normal Blood Pressure 132/97 H Blood Pressure Mean 108 Pulse Ox 100 Oxygen Delivery Method Room Air Room Air MDM MDM MDM Narrative Medical decision making narrative: My independent interpretation of her 2 view chest x-ray shows no infiltrative process. No cardiomegaly. No pneumothorax. Final reading by radiology as no evidence of active intrathoracic disease. Patient's COVID and influenza are negative. Patient still likely has a viral illness. She has symptoms consistent with that. We will write her for some Zofran as she has had some mild nausea. I will write for albuterol inhaler which she has used occasionally when she is sick. We discussed reasons to return. She requested time off work. She only works Tuesday and Tuesday so we will have her return which will give her almost a full week off to recover. Lab Data Attestation: I reviewed the patient's lab results. Radiography Diagnostic Testing: Clinical Impression(s) from Imaging Studies Chest X-Ray 05/23/22 00:10 IMPRESSION: No evidence of active intrathoracic disease. Electronically Signed: Enedina Wilson MD at 0:34 EST , Discharge Plan Triage Chief Complaint: Shortness of Breath ED Provider: Yonathan Giles Dx/Rx/DC Orders Clinical Impression: Viral URI with cough Instructions: ED URI, Viral, No Abx (Adult) Prescriptions: New albuterol sulfate [Ventolin HFA] 90 mcg/actuation HFA aerosol inhaler 2 puff inhalation Q4H PRN PRN (Reason: Wheezing) Qty: 1 0RF ondansetron [ondansetron] 4 mg tablet,disintegrating 4 mg PO Q8H PRN PRN (Reason: Nausea) Qty: 10 0RF No Action venlafaxine 150 MG capsule 150 mg PO DAILY Label Comments: MOOD topiramate 50 MG tablet 200 mg PO DAILY Label Comments: BIPOLAR trazodone 50 MG tablet 200 mg PO QHS PRN PRN (Reason: Insomnia) Label Comments: CAN TAKE 50-150MG FOR INSOMNIA bupropion HCl 150 MG tablet extended release 24 hr 150 mg PO DAILY naproxen 500 MG tablet 500 mg PO BID Qty: 20 0RF potassium chloride 20 mEq/15 mL liquid 20 meq PO BID Qty: 180 0RF fluconazole [Diflucan] 150 mg tablet 150 mg PO DAILY Qty: 2 0RF Rx Instructions: Take on day 7 and day 10 of antibiotic treatment nitrofurantoin monohyd/m-cryst [Macrobid] 100 mg capsule 100 mg PO BID Qty: 20 0RF Rx Instructions: must administer with a meal/food phenazopyridine [Pyridium] 100 mg tablet 100 mg PO TID Qty: 6 0RF Stand Alone Forms: Work Status Form Primary Care Provider: Gerri Martinez NP Referrals: Gerri Martinez NP, MANAGER OF HOUSEKEEPING-C [Primary Care Provider] - 3-5 Days if not improving Disposition Disposition: Home, Self Care
[2022-05-23] MEDS: Ipratropium/Albuterol Sulfate 3 ML AMPUL.NEB INHALATION (23:44)
[2022-05-23 23:45] VITALS: PULSE 82; RESP 18
[2022-05-24 00:58] VITALS: PULSE 88; RESP 16; O2SAT 99
== END 2022-05-24 01:03 | disposition home or self-care (01) ==
PROVIDERS: Emergency Provider Emergency Medicine; PCP Nurse Practitioner Family; Visit Provider Emergency Medicine
DX: J06.9 Acute upper respiratory infection, unspecified (principal); R11.0 Nausea; F17.210 Nicotine dependence, cigarettes, uncomplicated; R51.9 Headache, unspecified; F41.9 Anxiety disorder, unspecified; Z20.822 Contact with and (suspected) exposure to COVID-19
CPT/HCPCS: 71046; 87428; 94640; 99282

== ENCOUNTER 2022-09-21 00:10 | Emergency (ER) | payer MEDICAID, SELFPAY ==
[2022-09-21 00:11] VITALS: BP 165/92; PULSE 72; RESP 16; TEMP 36.6; O2SAT 99; BMI 38.9
--- NOTE | 2022-09-21 00:25 | ED.VIS.DENTA ---
HPI History of Present Illness Chief Complaint: Dental Informant: patient Onset/Context/Timing Onset: Yesterday Context: Gradual Onset Current Severity: Moderate Maximum Severity: Severe Narrative Narrative: Patient presents secondary to left upper dental pain. Patient states she is had several teeth pulled there and believes she had a root canal done on 1 tooth. Yesterday she had left upper dental pain and some slight facial swelling. She has been using Orajel, Tylenol, and ibuprofen without improvement. PFSH PFSH Medical History Asthma Kidney stones Smoker Home Medications topiramate 50 mg tablet 200 mg PO DAILY 12/13/14 [History Last Taken Unknown] venlafaxine 150 mg capsule,extended release 24 hr 150 mg PO DAILY 12/13/14 [History Last Taken 09/16/16 09:00] trazodone 50 mg tablet 200 mg PO QHS PRN PRN Insomnia 01/24/17 [History Last Taken Unknown] bupropion HCl 150 mg 24 hr tablet, extended release 150 mg PO DAILY 03/25/19 [History Last Taken Unknown] naproxen 500 mg tablet 500 mg PO BID #20 tabs 03/25/19 [Rx Last Taken Unknown] potassium chloride 20 mEq/15 mL oral liquid 20 meq (15 mL) PO BID #180 mL 12/30/20 [Rx Last Taken Unknown] fluconazole 150 mg tablet (Diflucan) 150 mg PO DAILY #2 tabs 11/09/21 [Rx Last Taken Unknown] nitrofurantoin monohydrate/macrocrystals 100 mg capsule (Macrobid) 100 mg PO BID #20 caps 11/09/21 [Rx Last Taken Unknown] phenazopyridine 100 mg tablet (Pyridium) 100 mg PO TID 6 doses #6 tabs 11/09/21 [Rx Last Taken Unknown] albuterol sulfate 90 mcg/actuation aerosol inhaler (Ventolin HFA) 2 puff inhalation Q4H PRN PRN Wheezing ##1 05/24/22 [Rx Last Taken Unknown] ondansetron 4 mg disintegrating tablet 4 mg PO Q8H PRN PRN Nausea #10 tabs 05/24/22 [Rx Last Taken Unknown] clindamycin HCl 150 mg capsule 300 mg PO 4X/DAY #80 CAPSULES 09/21/22 [Rx Last Taken Unknown] fluconazole 150 mg tablet (Diflucan) 150 mg PO DAILY #1 TAB 09/21/22 [Rx Last Taken Unknown] hydrocodone-acetaminophen 5-325mg 5mg-325mg 1 tab PO Q6H PRN PRN Pain 3 days #10 TABLETS 09/21/22 [Rx Last Taken Unknown] ondansetron 4 mg disintegrating tablet 4 mg PO Q8H PRN PRN Nausea #10 tabs 09/21/22 [Rx Last Taken Unknown] Allergy/AdvReac Type Severity Reaction Status Date / Time Iodinated Contrast Media [CT] Allergy Anaphylaxis Verified 09/21/22 00:12 latex Allergy Swelling Verified 09/21/22 00:12 morphine Allergy Anaphylaxis Verified 09/21/22 00:12 prednisone Allergy Other Verified 09/21/22 00:12 diphenhydramine HCl AdvReac Other Verified 09/21/22 00:12 [From Benadryl] Surgical History History of cholecystectomy Social History household members: significant other and children Smoking Status: Current every day smoker tobacco type: cigarettes alcohol intake: current Alcohol type: other substance use type: marijuana ROS ROS ED Constitutional Constitutional ED: Denies chills or fever(s) Eyes Eyes: Denies change in vision or discharge from eye(s) ENT ENT ED: Reports other Details: Left facial swelling and oral pain. ; Denies discharge from eye(s), rhinorrhea or sore throat Cardiovascular Cardiovascular: Denies chest pain Respiratory/Chest Respiratory/Chest: Denies cough or dyspnea Gastrointestinal Gastrointestinal: Denies abdominal pain, nausea or vomiting Genitourinary Genitourinary ED: Denies dysuria Musculoskeletal Musculoskeletal: Denies back pain or extremity pain Integumentary Denies Abrasions or rash Neurologic Neurologic: Denies headache(s) or weakness Allergic/Immunologic Allergic/Immunologic ED: Denies lip swelling or urticaria EXAM Physical Exam Const Vital Signs: 09/21/22 00:11 Temperature 97.8 F Temperature Source Temporal Pulse Rate 72 Respiratory Rate 16 Blood Pressure 165/92 H Blood Pressure Mean 116 Pulse Ox 99 Oxygen Delivery Method Room Air Positive well nourished and well developed General Appearance ED: well developed HEENT HEENT Narrative: No obvious facial edema or erythema at this time. Intraoral examination reveals multiple molars on the left maxillary surface that have been previously pulled. Gums are slightly edematous. Posterior pharynx examination is normal. No trismus. No cervical lymphadenopathy. Left TM is clear. Eyes PERRL and EOMs intact bilaterally Neck no lymphadenopathy Chest Wall inspection of chest normal and palpation of chest normal Resp normal respiratory effort and clear to auscultation bilaterally Cardio regular rate and regular rhythm GI normal to inspection, nondistended, normoactive bowel sounds Extremity normal to inspection Neuro oriented x3 and moves all extremities Psych mental status grossly normal Skin no rashes or lesions noted MDM MDM MDM Narrative Medical decision making narrative: I did do an [facility] report. Patient has not had narcotics in quite some time. She will be given a course of [place] and Zofran with it as she states that usually upsets her stomach. She is treated with clindamycin and a single dose of Diflucan written for the end of her antibiotic course. She is given a dental referral sheet. Return instructions given. Discharge Plan Triage Chief Complaint: Dental ED Provider: Kylah Martins Dx/Rx/DC Orders Clinical Impression: Odontalgia Instructions: ED Dental Pain Prescriptions: New hydrocodone-acetaminophen 5-325 mg tablet 1 tab PO Q6H PRN PRN (Reason: Pain) 3 Days Qty: 10 0RF ondansetron 4 mg tablet,disintegrating 4 mg PO Q8H PRN PRN (Reason: Nausea) Qty: 10 0RF fluconazole [Diflucan] 150 mg tablet 150 mg PO DAILY Qty: 1 0RF clindamycin HCl 150 mg capsule 300 mg PO 4X/DAY Qty: 80 0RF No Action venlafaxine 150 MG capsule 150 mg PO DAILY Label Comments: MOOD topiramate 50 MG tablet 200 mg PO DAILY Label Comments: BIPOLAR trazodone 50 MG tablet 200 mg PO QHS PRN PRN (Reason: Insomnia) Label Comments: CAN TAKE 50-150MG FOR INSOMNIA bupropion HCl 150 MG tablet extended release 24 hr 150 mg PO DAILY naproxen 500 MG tablet 500 mg PO BID Qty: 20 0RF potassium chloride 20 mEq/15 mL liquid 20 meq PO BID Qty: 180 0RF fluconazole [Diflucan] 150 mg tablet 150 mg PO DAILY Qty: 2 0RF Rx Instructions: Take on day 7 and day 10 of antibiotic treatment nitrofurantoin monohyd/m-cryst [Macrobid] 100 mg capsule 100 mg PO BID Qty: 20 0RF Rx Instructions: must administer with a meal/food phenazopyridine [Pyridium] 100 mg tablet 100 mg PO TID Qty: 6 0RF albuterol sulfate [Ventolin HFA] 90 mcg/actuation HFA aerosol inhaler 2 puff inhalation Q4H PRN PRN (Reason: Wheezing) Qty: 1 0RF ondansetron [ondansetron] 4 mg tablet,disintegrating 4 mg PO Q8H PRN PRN (Reason: Nausea) Qty: 10 0RF Primary Care Provider: Gerri Martinez NP Referrals: Gerri Martinez MICROSTRATEGY ARCHITECT DEVELOPER, MICROSTRATEGY ARCHITECT DEVELOPER-C [Primary Care Provider] - Activity Restrictions/Additional Instructions: Please continue to take ibuprofen regularly with the additional pain medicine I provided. A dental referral list was also given. Disposition Disposition: Home, Self Care Discharge Date/Time: 09/21/22 00:35
[2022-09-21] MEDS: Clindamycin HCl 150 MG Capsule 300 MG PO (00:32)
[2022-09-21] MEDS: Ondansetron ODT 4 MG Tablet PO (00:33)
[2022-09-21] MEDS: HYDROcodone Bitartrate/Apap 5/325 Tablet PO (00:33)
== END 2022-09-21 00:35 | disposition home or self-care (01) ==
PROVIDERS: Emergency Provider Emergency Medicine; PCP Nurse Practitioner Family; Visit Provider Emergency Medicine
DX: K08.89 Other specified disorders of teeth and supporting structures (principal); F17.210 Nicotine dependence, cigarettes, uncomplicated
CPT/HCPCS: 99283

== ENCOUNTER 2022-10-31 02:33 | Emergency (ER) | payer OTHER, MEDICAID, SELFPAY ==
[2022-10-31 02:34] VITALS: BP 162/129; PULSE 79; RESP 18; TEMP 36.6; O2SAT 98; BMI 37.3
[2022-10-31 02:40] VITALS: BP 162/129; PULSE 79; RESP 18; TEMP 36.6; O2SAT 98
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
--- NOTE | 2022-10-31 03:00 | EKG12_ITS ---
Test Reason : CP Blood Pressure : / mmHG Vent. Rate : 074 BPM Atrial Rate : 074 BPM P-R Int : 132 ms QRS Dur : 080 ms QT Int : 370 ms P-R-T Axes : 075 065 033 degrees QTc Int : 410 ms Normal sinus rhythm Nonspecific ST abnormality Abnormal ECG Confirmed by MELLO ALLRED, VANESSA ([id number]), production editor ESTELA GERBER ([id number]) on 11/01/2022 1:27:48 PM Referred By: Confirmed By:VANESSA SARKAR MD
[2022-10-31 03:03] LABS: Absolute Lymphocyte Count 2.56 X10^3/uL (0.83-4.51); Absolute Neutrophil Count 6.8 X10^3/uL (2.0-7.7); Basophil# 0.07 X10^3/uL; Basophil% 0.7 % (0-1); Eosinophil# 0.08 X10^3/uL; Eosinophils% 0.8 % (0-5); Hematocrit 47.8 % (37-47); Hemoglobin 15.8 g/dL (12.0-15.0); Lymphocyte # 2.56 X10^3/ul (0.83-4.51); Lymphocyte % 24.7 % (19-41); Mean Corp Hgb Conc 33.1 g/dL (32-36); Mean Corpuscular Hgb 30.6 pg (27.0-32.0); Mean Corpuscular Volume 92.6 fL (81-99); Mean Platelet Vol. 9.2 fl (6.2-12.0); Monocyte% 7.7 % (0-10); NRBC Flagged by Analyzer 0 % (0-5); Neutrophil # 6.81 X10^3/uL (2.7-7.7); Neutrophil % 65.7 % (47-70); Platelet Count 281 K/mm3 (150-450); RBC Distribution Width CV 13.1 % (11.6-14.6); RBC Distribution Width SD 44.5 fl (35.1-43.9); Red Blood Count 5.16 M/mm3 (4.2-5.4); White Blood Count 10.4 K/mm3 (4.4-11.0)
--- NOTE | 2022-10-31 03:08 | RAD_ITS ---
INDICATION: CP EXAMINATION/TECHNIQUE: X-RAY - XR Chest 1 View COMPARISON: 05/23/2022 FINDINGS: LINES/DEVICES: None. LUNGS: No consolidation, edema or effusion. No pneumothorax. MEDIASTINUM AND CARDIOVASCULAR STRUCTURES: Cardiac silhouette not enlarged. Central airways and mediastinal contour are unremarkable. BONES AND SOFT TISSUES: Unremarkable. RAD/Chest 1 View (Portable) IMPRESSION: No radiographic evidence of acute cardiopulmonary disease. Electronically Signed: Orlin Isidro MD at 3:19 EDT ,
[2022-10-31] MEDS: fentaNYL 100 MCG/2 ML Ampul 25 MCG IV (03:14)
[2022-10-31] MEDS: LORazepam 2 MG/ML Syringe 1 MG IV (03:14)
[2022-10-31 03:15] LABS: BUN 14 mg/dL (7-18); BUN/Creat Ratio 16.3 RATIO (10-20); Calcium,Total 9.2 mg/dL (8.5-10.1); Creatinine, Serum 0.86 mg/dL (0.55-1.02); EST Glomerular Filtration Rate 78 mL/min (>60); Est Glom Filt Rate - Afr Amer 95 mL/min (>60); Estimated Creatinine Clearance 68.77 ml/min; Glucose 86 mg/dL (74-106); Sodium Level 140 mmol/L (136-145); Troponin-I HS 4 pg/mL (3.0-54.0)
[2022-10-31] MEDS: Ondansetron 4 MG/2 ML Vial IV (03:15)
[2022-10-31 03:16] LABS: Anion Gap 5 (5-15); Chloride 106 mmol/L (98-107); Potassium 3.3 mmol/L (3.5-5.1)
[2022-10-31 03:19] VITALS: O2SAT 96
--- NOTE | 2022-10-31 03:20 | ED.RN ---
WHILE TRYING TO HELP PT INTO GOWN, TAKE VITALS AND START AN IV, BOYFRIEND IS STANDING BLOCKING NURSE TO PATIENT. ASKED BOYFRIEND TO MOVE AND HE BECAME DEFENSIVE, ATTEMPTED TO EXPLAIN PROCESSES AND ACCESS NEEDED TO PT.
--- NOTE | 2022-10-31 03:21 | ED.RN ---
Patient's family member comes out to the desk requesting to talk to a substation electrician supervisor. This RN explains that I am the charge nurse, he states his concerns are that staff went too fast and that there were male staff in the room while we were working on the patient. This RN apologizes and explains that we have a protocol for chest pain and that we have timed benchmarks to meet in case the patient is having a heart attack. He then states I don't care, you guys don't need to do it like that His next concern was that the information technology officer was a male and had to remove part of the patients gown and touch her. This RN continues to educate that we do the EKG so fast to check for heart attack. He states that that nurse dog yelled at me and told me i had to step out of the way I apologized that that happened and explained that the nurse was just trying to quickly get an IV and blood work. He states that she left a needle in her arm and walked away This RN explained that I saw what happened, and that it was canula and not a needle and that the nurse was getting a gauze out of the drawer before discontinuing he unsuccessful IV. He states that he wants a copy of this complaint, This RN tries to explain to him that we don't have a form or anything that i can make a copy of. He is not satisfied with any answers. Patient is denying needs at this time and this RN leaves the room.
--- NOTE | 2022-10-31 03:34 | ED.RN ---
Pt calls out stating her chest pain is back and worse, Dr Giles notified.
--- NOTE | 2022-10-31 03:37 | CT_ITS ---
INDICATION: chest pain EXAMINATION: CT CHEST WITHOUT CONTRAST - CT Chest W/O Contrast Injection TECHNIQUE: Helically acquired images were obtained of the chest. A radiation dose optimization technique was used for this scan. IV Contrast dosage and agent: None. RADIATION DOSAGE (If Supplied By Facility): CTDIvol = ( 17.01 ) mGy, DLP = ( 526.88 ) mGycm COMPARISON: 05/23/2022 FINDINGS: LUNGS, PLEURA AND LARGE AIRWAYS: No masses, consolidation, or edema. No pleural effusion or thickening. No pneumothorax. THYROID: No thyroid lesions. HEART AND PERICARDIUM: Heart size is normal. No pericardial effusion. CORONARY ARTERIES: Coronary artery calcification VESSELS: Thoracic aorta is not dilated. MEDIASTINUM AND MERLYN: No mediastinal or hilar adenopathy. Esophagus is unremarkable. No hiatal hernia. UPPER ABDOMEN: No acute pathology. BONES: No suspicious lytic or blastic abnormality. CT/Chest without Contrast IMPRESSION: No evidence of pneumonia or pneumothorax. Electronically Signed: Orlin Isidro MD at 5:09 EDT ,
[2022-10-31 04:34] VITALS: BP 110/72; PULSE 64; RESP 16; O2SAT 94
[2022-10-31 05:08] LABS: Troponin-I HS 5 pg/mL (3.0-54.0)
[2022-10-31 05:28] VITALS: BP 114/73; PULSE 63; RESP 16; O2SAT 96
== END 2022-10-31 05:32 | disposition home or self-care (01) ==
PROVIDERS: Emergency Provider Emergency Medicine; PCP Nurse Practitioner Family; Visit Provider Emergency Medicine
DX: R07.9 Chest pain, unspecified (principal); F17.210 Nicotine dependence, cigarettes, uncomplicated; R55 Syncope and collapse; F41.0 Panic disorder [episodic paroxysmal anxiety]; J45.909 Unspecified asthma, uncomplicated
CPT/HCPCS: 71045; 71250; 80048; 84484; 85025; 93005; 96374; 96375; 99283; A4216; J2405